=== PATIENT | male | born 1985 | race African-American/Black ===

== ENCOUNTER 2024-06-29 15:07 | Outpatient (CLI) | payer MEDICAID, SELFPAY ==
--- NOTE | ~2024-06-29 | XR_ITS ---
EXAMINATION: XR chest 2V 06/29/2024 15:38 INDICATION: Chest pain PROCEDURE: 2 view chest COMPARISON: No prior studies for comparison. FINDINGS: The lungs are clear. The cardiomediastinal silhouette is within normal limits. There are no pleural effusions. There is no pneumothorax suspected. IMPRESSION: 1: NO ACUTE CARDIOPULMONARY DISEASE. Reviewed, dictated and finalized at location B. [employer] CHIEF
--- NOTE | ~2024-06-29 | XR_ITS ---
HISTORY: neck and kidney pain and tobacco use COMPARISON: None TECHNIQUE: 3 views of the cervical spine were performed FINDINGS: Visualization of the cervical spine to the superior endplate of T2. Straightening of the normal curvature of the cervical spine is identified. No prevertebral soft tissue swelling is appreciated. No acute compression fracture is noted. The dens is equidistant between the pillars, without asymmetry. Air column within the trachea is midline. The visualized portions of the bilateral upper lung watson are unremarkable. IMPRESSION: Unremarkable plain film evaluation of the cervical spine, as detailed above. Reviewed, dictated and finalized at location A. /BAKERY ASSOCIATE
--- NOTE | ~2024-06-29 | XR_ITS ---
EXAMINATION: XR abdomen obstructive series DATE: 06/29/2024 15:38 INDICATION: Kidney pain TECHNIQUE: Frontal supine and upright views of the abdomen were obtained. COMPARISON: None. FINDINGS: Moderate amount of gas and stool scattered throughout the colon. No dilated loops gas-filled bowel to suggest obstruction. No free intraperitoneal gas. Visualized lung bases are clear. Heart size is n ormal. Mild lumbar levocurvature. Metallic devices projecting over L5-S1 possibly either for anterior spinal fusion versus a prosthetic disc. IMPRESSION: 1. No free intraperitoneal gas or dilated gas-filled loops of bowel to suggest obstruction. Reviewed, dictated and finalized at location A. INE ENGRAVER
== END 2024-06-29 15:08 | disposition home or self-care (01) ==
LOC: ANHIMG 15:13
PROVIDERS: PCP Emergency Medicine; Visit Provider Emergency Medicine
DX: M54.2 Cervicalgia (principal); Z72.0 Tobacco use
CPT/HCPCS: 71046; 72040; 74019